=== PATIENT | male | born 1955 | race Caucasian/White ===

== ENCOUNTER → 2016-11-17 | Outpatient (CLI) | payer BC ==
--- NOTE | 2016-11-17 12:41 | XR ---
EXAMINATION TYPE: XR lumbar spine 2 or 3V DATE OF EXAM: 11/17/2016 10:27 AM CLINICAL HISTORY: pain TECHNIQUE: Three views of the lumbar spine are submitted. COMPARISON: None. FINDINGS: There are 5 lumbar type vertebral bodies identified. The lumbar spine shows satisfactory alignment w ithout evidence of acute fracture or dislocation. Vertebral body heights are within normal limits. Moderate degenerative disc space narrowing at L3-4, L4-5 and L5-S1 . Lower lumbar facet joint arthrop athy. The overlying soft tissue appears unremarkable. IMPRESSION: No acute fracture or dislocation is seen in the lumbar spine. ICD 10 NO FRACTURE, INITIAL EVALUATION
== END | disposition home or self-care (01) ==
LOC: RADXRMAIN 10:12
PROVIDERS: ATTEND Family Medicine
DX: M54.5 Low back pain (principal)
CPT/HCPCS: 72100

== ENCOUNTER → 2016-11-22 | Outpatient (CLI) | payer BC ==
--- NOTE | 2016-11-22 18:34 | CT ---
EXAMINATION TYPE: CT lumbar spine wo con DATE OF EXAM: 11/22/2016 5:59 PM COMPARISON: NONE HISTORY: Patient complains of chronic low back pain. CT DLP: 996 mGycm Automated exposure control for dose reduction was used. Unenhanced CT of the lumbar spine was performed. Bone and soft tissue window settings are submitted as well as coronal and sagittal reconstructions. Lumbar vertebra have normal alignment. There is mild narrowing at L4-5 disc space. There is mild ante rior spurring throughout the lumbar spine. The posterior elements are intact. There is no sign of com pression fracture. Abdominal aorta is atheromatous. There is no lumbar paraspinal mass. There is no f ocal bony destructive process. There is no spinal stenosis. I see no lumbar disc herniation. The sacr oiliac joints appear normal. IMPRESSION: Minor degenerative disc change at L4-5. Atherosclerotic vascular disease. Mild hypertrophic spurring. No fracture.
== END | disposition home or self-care (01) ==
LOC: RADCTMAIN 17:36
PROVIDERS: ATTEND Family Medicine
DX: M46.06 Spinal enthesopathy, lumbar region (principal); I70.90 Unspecified atherosclerosis
CPT/HCPCS: 72131

== ENCOUNTER 2018-08-28 01:03 | Inpatient (IN) | payer BC ==
[2018-08-28] MEDS ORDERED: SODIUM CHLORIDE 0.9% 1,000 ML IV STA (01:26)
[2018-08-28 01:27] LABS: ABG Base Excess -14.6 mmol/L; ABG HCO3 18 mmol/L (21-25); ABG PO2 133 mmHg (83-108); ABG TCO2 20 mmol/L (19-24)
[2018-08-28] MEDS ORDERED: AMIODARONE 450 MG in DEXTROSE 5% IN WATER 250 ML IV ONE ×2 (01:32)
[2018-08-28] MEDS ORDERED: DEXTROSE 5% IN WATER 100 ML with AMIODARONE 150 MG IV ONE (01:33)
[2018-08-28 01:42] LABS: ABG PCO2 83 mmHg (35-45); ABG PH <7.00 (7.35-7.45)
[2018-08-28] MEDS ORDERED: ASPIRIN 300 MG SUPP RECTAL STA (01:46)
[2018-08-28] MEDS ORDERED: HEPARIN SODIUM,PORCINE 5,000 UNIT/ML 1 ML VIAL IV ONE (01:46)
[2018-08-28] MEDS ORDERED: MIDAZOLAM 1 MG/ML 5 ML VIAL IV STA (01:50)
[2018-08-28 01:53] LABS: Albumin 3.5 g/dL (3.5-5.0); Calcium 8.3 mg/dL (8.4-10.2); Magnesium 2.7 mg/dL (1.6-2.3); Potassium 4.1 mmol/L (3.5-5.1); Total Bilirubin 0.4 mg/dL (0.2-1.3); Total Protein 6.3 g/dL (6.3-8.2)
--- NOTE | 2018-08-28 01:59 | XR ---
EXAMINATION TYPE: XR chest 1V confirm line [facility] DATE OF EXAM: 08/28/2018 COMPARISON: 07/27/2018 HISTORY: Cardiac arrest TECHNIQUE: Single frontal view of the chest is obtained. FINDINGS: Endotracheal tube is 3 cm from the leo. Nasogastric tube appears below the diaphragm an d in the stomach. There is patchy pulmonary airspace edema. There is some coalescent infiltrate right lower lobe medially. Trachea is midline. There is no pleural effusion. IMPRESSION: There is no pulmonary edema compared to last exam. Consider heart failure or RDS. Endotr acheal tube in good position. I do not see an inferior vena cava catheter.
[2018-08-28 02:07] LABS: Creatine Kinase MB 4.8 ng/mL (0.0-2.4)
--- NOTE | 2018-08-28 02:10 | ED ---
General Adult HPI - General Chief complaint: Cardiac Arrest/CPR Stated complaint: cardiac arrest Time Seen by Provider: 08/28/18 01:19 Source: patient, EMS, RN notes reviewed, old records reviewed Mode of arrival: EMS Limitations: altered mental status - History of Present Illness Initial comments: 63-year-old male no known past medical history presents as cardiac arrest. Initial call according to EMS was chest pain, patient was found unresponsive, bradycardic and hypotensive. He became pulseless, was intubated by EMS and resuscitation BY acls protocol. Patient received 4 doses of epinephrine while in route. He was never in a shockable rhythm. CPR was continued with the Angel resuscitation machine. He arrived at this institution at approximately 1 AM. He was pulseless and CPR was continued. ET tube was replaced secondary to uncertain to the of placement. - Related Data Home Medications Medication Instructions Recorded Confirmed Atorvastatin [Lipitor] 40 mg PO HS 07/27/18 07/27/18 Cetirizine HCl [Zyrtec] 10 mg PO DAILY 07/27/18 07/27/18 Cholecalciferol [Vitamin D3] 1,000 unit PO DAILY 07/27/18 07/27/18 Gabapentin 600 mg PO TID 07/27/18 07/27/18 HYDROcodone/APAP 10-325MG [[place] 1 tab PO TID PRN 07/27/18 07/27/18 10-325] Lisinopril [Zestril] 10 mg PO DAILY 07/27/18 07/27/18 Meclizine [Antivert] 12.5 mg PO HS PRN 07/27/18 07/27/18 Metoprolol Tartrate [Lopressor] 25 mg PO BID 07/27/18 07/27/18 Modafinil [Provigil] 200 mg PO Q12H PRN 07/27/18 07/27/18 Multivitamins, Thera [Multivitamin 1 tab PO DAILY 07/27/18 07/27/18 (formulary)] Previous Rx's Medication Instructions Recorded Ciprofloxacin HCl [Cipro] 500 mg PO Q12HR #7 tablet 07/30/18 methylPREDNISolone Dose Pack 4 mg PO DIRECTED #21 package 07/30/18 [Medrol Dose Pack] Allergies Allergy/AdvReac Type Severity Reaction Status Date / Time Penicillins Allergy Rash/Hives Verified 07/27/18 16:14 Review of Systems ROS Statement: Those systems with pertinent positive or pertinent negative responses have been documented in the HPI. ROS Other: All systems not noted in ROS Statement are negative. Past Medical History Past Medical History: Coronary Artery Disease (CAD) History of Any Multi-Drug Resistant Organisms: None Reported Past Surgical History: Cardiac Valve Replacement Past Anesthesia/Blood Transfusion Reactions: No Reported Reaction Past Psychological History: No Psychological Hx Reported Smoking Status: Former smoker Past Alcohol Use History: None Reported Past Drug Use History: None Reported General Exam - General Exam Comments Initial Comments: 63-year-old male has cardiac arrest. Patient's pupils are 2 mm, nonreactive. He is intubated. Breath sounds with BVM. No spontaneous heart sounds. No peripheral pulses, no central pulses. Abdomen is distended. Patient has peripheral cyanosis. Limitations: altered mental status Course Vital Signs 08/28/18 08/28/18 08/28/18 01:05 01:09 01:16 Pulse Rate 0 L 106 H 113 H Respiratory 0 L 16 16 Rate Blood Pressure 146/88 171/81 O2 Sat by Pulse 0 L 95 97 Oximetry EKG Findings - EKG Comments: EKG Findings:: EKG obtained at 0 1:15, sinus rhythm with sinus arrhythmia, PVCs , wide-complex with QRS duration 136, KS interval 168, ventricular rate 93, T- wave inversion and ST segment depression in the lateral precordium and inferior leads. Repeat EKG obtained at 0123, rate of 121, KS interval 236, QS duration 126, this is wide-complex with ST segment changes, there is some sinus beats. Procedures - Central Line Placement Right Femoral Consent Obtained: emergent situation Time Out Performed: Yes Patient Placed on Monitor/Pulse Ox: Yes Central Line Prep: Chlorhexidine scrub Ultrasound Used for Placement: No Central Line Lumen Inserted: triple Bloods Obtained for Lab: Yes Central Line Position: good blood return, all ports aspirated, flushed, capped, sutured in place with nylon Dressing Applied: Tegaderm Patient Tolerated Procedure: well Additional Comments: This was an urgent line, full sterile technique was not used. This was a resuscitative line. Medical Decision Making - Medical Decision Making 63-year-old male with chest pain presenting as cardiopulmonary arrest. Patient does have return of spontaneous circulation with epinephrine in the emergency department. He has a wide-complex rhythm treated with amiodarone. No definitive ST segment elevation, this was not a V. fib arrest. This was PEA arrest. However given the fact that he was presenting with chest pain initially , I discussed case with cardiology immediately and it was decided that the patient will be taken to the [facility] for urgent heart catheterization. Please see code sheet for full list of resuscitative medications given. He was given sodium bicarb and epinephrine. He was started on norepinephrine infusion , started on amiodarone, given heparin, rectal aspirin. Laboratory studies pending. Chest x-ray shows pulmonary edema, may be contusion from CPR versus cardiogenic pulmonary edema. - Lab Data Result diagrams: 08/28/18 01:24 Lab Results 08/28/18 08/28/18 08/28/18 Range/Units 01:19 01:24 01:24 Sample Site rbrac ABG pH <7.00 L* (7.35-7.45) ABG pCO2 83 H* (35-45) mmHg ABG pO2 133 H (83-108) mmHg ABG HCO3 18 L (21-25) mmol/L ABG Total CO2 20 (19-24) mmol/L ABG O2 Saturation 96.0 (94-97) % ABG Base Excess -14.6 mmol/L Atilio Test Yes FiO2 100 % Sodium 139 (137-145) mmol/L Potassium 4.1 (3.5-5.1) mmol/L Chloride 103 (98-107) mmol/L Carbon Dioxide 19 L (22-30) mmol/L Anion Gap 17 mmol/L BUN 13 (9-20) mg/dL Creatinine 1.47 H (0.66-1.25) mg/dL Est GFR (CKD-EPI)AfAm 58 (>60 ml/min/1.73 sqM) Est GFR (CKD-EPI)NonAf 50 (>60 ml/min/1.73 sqM) Glucose 365 H (74-99) mg/dL Calcium 8.3 L (8.4-10.2) mg/dL Magnesium 2.7 H (1.6-2.3) mg/dL Total Bilirubin 0.4 (0.2-1.3) mg/dL AST 66 H (17-59) U/L ALT 49 (21-72) U/L Alkaline Phosphatase 53 (38-126) U/L Total Creatine Kinase 156 (55-170) U/L CK-MB (CK-2) 4.8 H (0.0-2.4) ng/mL CK-MB (CK-2) Rel Index 3.1 Troponin I 0.202 H* (0.000-0.034) ng/mL Total Protein 6.3 (6.3-8.2) g/dL Albumin 3.5 (3.5-5.0) g/dL Critical Care Time Critical Care Time: Yes Total Critical Care Time: 45 Disposition Clinical Impression: Cardiac arrest, Signs of return of spontaneous circulation, Respiratory failure Disposition: ADMITTED IP TO THIS [facility] Condition: Serious Is patient prescribed a controlled substance at d/c from ED?: No Referrals: Romeo Street MD [Primary Care Provider] - 1-2 days Decision to Admit Reason: Admit from EC Decision Date: 08/28/18 Decision Time: 02:10
[2018-08-28 02:14] LABS: INR 1.1 (<1.2); Partial Thromboplastin Time 32.6 sec (22.0-30.0); Prothrombin Time 11.9 sec (9.0-12.0)
[2018-08-28] MEDS ORDERED: SODIUM BICARB 8.4% 50 ML VIAL (1 MEQ/ML) IV ONE (02:26)
[2018-08-28 02:27] LABS: Troponin I 0.202 ng/mL (0.000-0.034)
[2018-08-28] MEDS ORDERED: NOREPINEPHRINE 4 MG in SODIUM CHLORIDE 0.9% 250 ML IV ONE (02:28)
[2018-08-28 02:30] LABS: HCT 47.5 % (39.0-53.0); HGB 14.1 gm/dL (13.0-17.5); Hypochromasia Marked; MCH 29.2 pg (25.0-35.0); MCHC 29.6 g/dL (31.0-37.0); Mean Platelet Volume 7.8; Platelet Count 185 k/uL (150-450); RBC 4.81 m/uL (4.30-5.90); RDW 13.7 % (11.5-15.5); WBC 16.5 k/uL (3.8-10.6)
[2018-08-28] MEDS ORDERED: NALOXONE 0.4 MG/ML 1 ML VIAL IV PRN ×2 (02:35→06:26)
--- NOTE | 2018-08-28 02:41 | XR ---
EXAMINATION TYPE: XR KUB DATE OF EXAM: 08/28/2018 COMPARISON: NONE HISTORY: Check line placement TECHNIQUE: Single view FINDINGS: Single supine view of the abdomen was obtained that shows a right-sided femoral catheter ap parently in the femoral vein and the tip is at the level of the mid sacrum. This is probably in the r ight common iliac vein. I see no sign of intestinal obstruction or pneumoperitoneum. There is some ga s-filled loops of small bowel in the midabdomen that could relate to mild ileus. IMPRESSION: Catheter tip is probably in the right common iliac vein. There is probably small bowel il eus.
[2018-08-28 03:06] LABS: MCV 98.7 fL (80.0-100.0)
[2018-08-28] MEDS ORDERED: LIDOCAINE 1% INJ 10MG/ML (20 ML MDV) SQ ONE (03:14)
[2018-08-28] MEDS ORDERED: SODIUM CHLORIDE 0.9% 1,000 ML IV ONE (03:16)
[2018-08-28] MEDS ORDERED: IV FLUID CONTINUATION 600 ML IV ONE (03:16)
[2018-08-28] MEDS ORDERED: IV FLUID CONTINUATION 700 ML IV ONE (03:16)
[2018-08-28] MEDS ORDERED: IOPAMIDOL-370 125ML BTL INJ ONE (03:29)
[2018-08-28] MEDS ORDERED: IOPAMIDOL-370 100ML BTL INJ ONE (03:37)
[2018-08-28] MEDS ORDERED: RX INFO: IV CONTRAST WAS GIVEN 1 EACH MISC MISCELLANE PRN ×2 (03:54→10:47)
[2018-08-28] MEDS ORDERED: SODIUM CHLORIDE 0.9% 1,000 ML IV SCH ×2 (04:00→07:45)
--- NOTE | 2018-08-28 04:10 | P.CRDCN ---
History of Present Illness Consult date: 08/28/18 Chief complaint: Shortness of breath History of present illness: This is a 63-year-old gentleman who was brought to the hospital by ambulance after he sustained cardiopulmonary arrest at home. Currently the patient is intubated. The history was taken from the . The patient does have a past medical history significant for COPD as well as hypertension. Beside that he did have aortic valve replacement, probably TAVR was performed at [facility] several years ago. Currently he does follow with a industrial laborer over there. The patient was in his usual state of health when he was sitting with his watching TV earlier at home when he suddenly developed shortness of breath. Beside that the patient also experienced chest discomfort according to his . The called ambulance where the patient was found unresponsive. He was bradycardic and hypotensive. Subsequently he became also less. At that point the patient was intubated on the scene and CPR was initiated by ambulance. The downtime at that point is unknown. The patient was received 4 doses of epinephrine while he is in route to the hospital. He never had any shockable rhythm. When he arrived the emergency room, he was also pulseless and CPR was initiated. The downtime also was unknown in the emergency room here. Subsequently the pulse was restored. The EKG showed sinus rhythm with wide complex rhythm. Because of that, and because of the chest discomfort before, a heart catheterization was advised. I did perform a heart catheterization on the patient and that revealed only mild nonobstructive coronary artery disease. The patient is going to be admitted to the intensive care unit. I will obtain an echocardiogram was Doppler. Please note that the patient did have an echocardiogram about a month ago and that revealed normal LV function with moderately stenotic bioprosthetic aortic valve. At that point the patient was admitted to the hospital with COPD exacerbation. Beside that PE need to be ruled out as well. I will obtain a d-dimer. The patient is unstable to undergo a computed tomography scan of the chest because currently he is on vasopressors was Levophed. Past Medical History Past Medical History: Coronary Artery Disease (CAD) History of Any Multi-Drug Resistant Organisms: None Reported Past Surgical History: Cardiac Valve Replacement Past Anesthesia/Blood Transfusion Reactions: No Reported Reaction Past Psychological History: No Psychological Hx Reported Smoking Status: Former smoker Past Alcohol Use History: None Reported Past Drug Use History: None Reported Medications and Allergies Home Medications Medication Instructions Recorded Confirmed Type Atorvastatin [Lipitor] 40 mg PO HS 07/27/18 07/27/18 History Cetirizine HCl [Zyrtec] 10 mg PO DAILY 07/27/18 07/27/18 History Cholecalciferol [Vitamin D3] 1,000 unit PO DAILY 07/27/18 07/27/18 History Gabapentin 600 mg PO TID 07/27/18 07/27/18 History HYDROcodone/APAP 10-325MG [[place] 1 tab PO TID PRN 07/27/18 07/27/18 History 10-325] Lisinopril [Zestril] 10 mg PO DAILY 07/27/18 07/27/18 History Meclizine [Antivert] 12.5 mg PO HS PRN 07/27/18 07/27/18 History Metoprolol Tartrate [Lopressor] 25 mg PO BID 07/27/18 07/27/18 History Modafinil [Provigil] 200 mg PO Q12H PRN 07/27/18 07/27/18 History Multivitamins, Thera [Multivitamin 1 tab PO DAILY 07/27/18 07/27/18 History (formulary)] Ciprofloxacin HCl [Cipro] 500 mg PO Q12HR #7 tablet 07/30/18 Rx methylPREDNISolone Dose Pack 4 mg PO DIRECTED #21 package 07/30/18 Rx [Medrol Dose Pack] Allergies Allergy/AdvReac Type Severity Reaction Status Date / Time Penicillins Allergy Rash/Hives Verified 07/27/18 16:14 Physical Exam Vitals: Vital Signs Pulse Pulse Resp BP BP Pulse Ox 08/28/18 02:45 80 19 78/66 100 08/28/18 02:30 71 20 108/63 99 08/28/18 02:15 90 19 97/62 08/28/18 02:00 92 18 73/36 89 L 08/28/18 01:45 86 18 69/56 97 08/28/18 01:30 113 H 23 108/56 97 08/28/18 01:16 113 H 16 171/81 97 08/28/18 01:15 115 H 22 109/71 94 L 08/28/18 01:09 106 H 16 146/88 95 08/28/18 01:05 0 L 0 L 0 L Intake and Output 08/27/18 08/27/18 08/28/18 14:59 22:59 06:59 Intake Total 226.562 Balance 226.562 Intake: IV 225 Intake, IV Titration 1.562 Amount Norepinephrine 4 mg In 1.562 Sodium Chloride 0.9% 250 ml @ Titrate IV .Q0M ONE Rx#:[id number] Other: Weight 99.79 kg - Constitutional General appearance: mild distress - Respiratory Respiratory: bilateral: rales - Cardiovascular Rhythm: irregularly irregular Heart sounds: normal: S1, S2 Abnormal Heart Sounds: systolic murmur Results 08/28/18 01:24 08/28/18 01:24 Cardiac Enzymes 08/28/18 08/28/18 Range/Units 01:24 01:24 AST 66 H (17-59) U/L CK-MB (CK-2) 4.8 H (0.0-2.4) ng/mL Troponin I 0.202 H* (0.000-0.034) ng/mL Coagulation 08/28/18 Range/Units 01:24 PT 11.9 (9.0-12.0) sec APTT 32.6 H (22.0-30.0) sec CBC 08/28/18 Range/Units 01:24 WBC 16.5 H (3.8-10.6) k/uL RBC 4.81 (4.30-5.90) m/uL Hgb 14.1 (13.0-17.5) gm/dL Hct 47.5 (39.0-53.0) % Plt Count 185 (150-450) k/uL Comprehensive Metabolic Panel 08/28/18 Range/Units 01:24 Sodium 139 (137-145) mmol/L Potassium 4.1 (3.5-5.1) mmol/L Chloride 103 (98-107) mmol/L Carbon Dioxide 19 L (22-30) mmol/L BUN 13 (9-20) mg/dL Creatinine 1.47 H (0.66-1.25) mg/dL Glucose 365 H (74-99) mg/dL Calcium 8.3 L (8.4-10.2) mg/dL AST 66 H (17-59) U/L ALT 49 (21-72) U/L Alkaline Phosphatase 53 (38-126) U/L Total Protein 6.3 (6.3-8.2) g/dL Albumin 3.5 (3.5-5.0) g/dL Current Medications Generic Name Dose Route Start Last Admin Trade Name Arminq PRN Reason Stop Dose Admin Amiodarone HCl 450 mg/ 259 mls @ 34.53 mls/hr 08/28/18 01:32 08/28/18 02:20 Dextrose/Water IV 08/28/18 09:02 1 mg/min .Q7H31M ONE 34.53 mls/hr Administration Protocol 1 MG/MIN Sodium Chloride 1,000 mls @ 75 mls/hr 08/28/18 04:00 Saline 0.9% IV 08/28/18 09:01 .[id number] DAVINA Miscellaneous Information 1 each 08/28/18 03:54 Rx Info: Iv Contrast Was Given MISCELLANE 08/30/18 03:54 DAILY PRN Per Protocol Naloxone HCl 0.2 mg 08/28/18 02:35 Narcan IV Q2M PRN Opioid Reversal Intake and Output 08/27/18 08/27/18 08/28/18 14:59 22:59 06:59 Intake Total 226.562 Balance 226.562 Intake: IV 225 Intake, IV Titration 1.562 Amount Norepinephrine 4 mg In 1.562 Sodium Chloride 0.9% 250 ml @ Titrate IV .Q0M ONE Rx#:[id number] Other: Weight 99.79 kg Patient Weight 08/28/18 06:59 Weight 99.79 kg 08/28/18 01:24 08/28/18 01:24 Assessment and Plan Assessment: Assessment #1 cardiopulmonary arrest. The exact etiology is unknown. Cath was normal. PE to be ruled out. #2 aortic valve disease and status post aortic valve replacement #3 known chronic obstructive pulmonary disease #4 hypertension Plan #1 the patient underwent a heart catheterization and that revealed mild nonobstructive coronary artery disease #2 he is going to be admitted to the intensive care unit #3 PE to be ruled out. I will obtain a d-dimer #4 an echocardiogram was Doppler as well #5 probably he needs to be diuresed in view of the elevated left ventricular end -diastolic pressure as well as chest x-ray finding #6 follow-up with the patient. Thank you for allowing us participate in his care
[2018-08-28 04:14] LABS: Eosinophils # (M) 0.17 k/uL (0-0.7); Nucleated Red Blood Cells 0 /100 WBC (0-0); Total Cells Counted 200
[2018-08-28 04:15] LABS: Anisocytosis (M) Present; Large Platelets Present; Polychromasia Present
[2018-08-28] MEDS ORDERED: FUROSEMIDE 10 MG/ML 4 ML VIAL ONE (04:20)
[2018-08-28 04:33] LABS: Glucose,Whole Blood 258 mg/dL (75-99)
--- NOTE | 2018-08-28 05:13 | CC ---
CARDIAC CATHETERIZATION REPORT DATE OF SERVICE: August 28, 2018 PERFORMING PHYSICIAN: Vinayak Samuels M.D., gas golf cart repairer. PROCEDURE PERFORMED: 1. Selective right and left coronary angiogram. 2. Left heart catheterization. INDICATION: This is a 63-year-old gentleman with past medical history significant for aortic valve disease and status post aortic valve replacement using bioprosthetic valve as well as history of hypertension and chronic obstructive pulmonary disease, who was brought to the emergency room by ambulance after he had a cardiopulmonary arrest at home. His EKG showed wide-complex rhythm. He was experiencing chest discomfort before the cardiac cardiopulmonary arrest. Because of that, heart catheterization was advised. APPROACH: Left common femoral artery. COMPLICATION: None. LEVEL OF SEDATION: Moderate with sedation length of 35 minutes. PROCEDURE DESCRIPTION: After obtaining an informed consent, the patient was brought to cardiac labor and delivery registered nurse. The left common femoral artery was cannulated using micropuncture technique, the micropuncture wire passed easily then I placed a 6-Grenadian sheath in the left common femoral artery. After that I did selective right and left coronary angiogram. Selective left coronary angiogram was performed using JL4 catheter. Selective right coronary angiogram was attempted using JR4 and then [place] right and then [place] right posterior, but finally I was able to get it using an AL1 catheter. I did left heart catheterization using the JR4 catheter which flipped into the LV then I did pullback across aortic valve. The procedure was completed without any complication. SELECTIVE CORONARY ANGIOGRAM: 1. The left main is a short left main but angiographically normal. It bifurcates into left circumflex and left anterior descending artery. 2. The left circumflex is a large caliber vessel. It is a nondominant vessel. The proximal circumflex appeared to be angiographically normal and gives rise into a large OM branch which appeared to be angiographically normal. The mid circumflex is normal and gives rise into a second OM branch which has mild disease only. The circumflex distally appeared to be angiographically normal. 3. The ramus intermedius is a large caliber vessel and appeared to be angiographically normal. 4. The LAD: The proximal LAD is angiographically normal. It gives rise into the first diagonal branch which is a medium caliber vessel, seems to be angiographically normal. The mid LAD and distal LAD appeared to be angiographically normal as well. 5. The right coronary artery is a medium caliber vessel and it appears to be angiographically normal. Distally bifurcates into PDA and PLV branches. HEMODYNAMICS: The left ventricular end-diastolic pressure was 40 mmHg with only mild gradient across the aortic valve. CONCLUSION: 1. Mild nonobstructive coronary artery disease. 2. Severely elevated left ventricular end-diastolic pressure. POSTPROCEDURE MANAGEMENT: 1. D-dimer to rule out a pulmonary embolization. 2. ICU admission. 3. Standard groin care. 4. Follow up with the patient. MMODL / IJN: [id number] /
[2018-08-28 06:31] LABS: ABG Base Excess -10.2 mmol/L; ABG HCO3 18 mmol/L (21-25); ABG Oxygen Saturation 99.8 % (94-97); ABG PCO2 48 mmHg (35-45); ABG PO2 149 mmHg (83-108); ABG TCO2 20 mmol/L (19-24)
[2018-08-28 06:36] LABS: ABG PH 7.19 (7.35-7.45)
[2018-08-28 07:21] LABS: Calcium 7.3 mg/dL (8.4-10.2); Magnesium 2.1 mg/dL (1.6-2.3); Phosphorus 7.9 mg/dL (2.5-4.5)
[2018-08-28 07:38] LABS: Lymphocytes # (M) 7.92 k/uL (1.0-4.8); Neutrophils % (M) 39 %
[2018-08-28 07:39] LABS: Band Neutrophils % 2 %; Basophils # (M) 0.17 k/uL (0-0.2); Metamyelocytes # (M) 0.66 k/uL (0); Metamyelocytes % 4 %; Monocytes # (M) 0.83 k/uL (0-1.0); Myelocytes % 3 %
[2018-08-28] MEDS: DOPamine DRIP 800 MG in DEXTROSE/WATER 1 500ML.BAG IV SCH (07:40)
[2018-08-28] MEDS ORDERED: SODIUM BICARB 8.4% 50 ML SYR (1 MEQ/ML) IV STA (07:40)
[2018-08-28] MEDS: PROPOFOL 1,000 MG in EMPTY BAG 1 BAG IV SCH ×3 (07:45→20:37)
[2018-08-28] MEDS ORDERED: INSULIN REGULAR 100 UNIT/ML VIAL IV STA (07:55)
[2018-08-28] MEDS ORDERED: DEXTROSE 50%-WATER 50 ML SYRINGE IVP STA (07:56)
[2018-08-28 07:57] LABS: HCT 46.6 % (39.0-53.0); HGB 14.1 gm/dL (13.0-17.5); Hypochromasia Marked; MCH 29.6 pg (25.0-35.0); MCHC 30.3 g/dL (31.0-37.0); MCV 97.9 fL (80.0-100.0); Mean Platelet Volume 7.9; Platelet Count 238 k/uL (150-450); RBC 4.76 m/uL (4.30-5.90); RDW 13.9 % (11.5-15.5); WBC 19.2 k/uL (3.8-10.6)
[2018-08-28] MEDS ORDERED: SODIUM POLYSTYRENE SULFONATE 15 GM/60 ML BOTTLE PO STA ×2 (07:57→13:50)
[2018-08-28] MEDS: ATROPINE SULFATE 0.1 MG/ML 10ML SYRINGE ONE ×2 (08:00→08:35)
[2018-08-28] MEDS ORDERED: HEPARIN SODIUM,PORCINE 5,000 UNIT/ML 1 ML VIAL IV PRN (08:00)
[2018-08-28] MEDS: SODIUM BICARB 8.4% 50 ML SYR (1 MEQ/ML) IV ONE (08:29)
[2018-08-28] MEDS: HEPARIN SOD,PORK IN 0.45% NACL 25,000 UNIT in 0.45% NACL 1 250ML.BAG IV SCH ×2 (08:46→23:08)
[2018-08-28 08:50] LABS: Band Neutrophils % 3 %; Lymphocytes # (M) 1.54 k/uL (1.0-4.8); Metamyelocytes # (M) 0.19 k/uL (0); Metamyelocytes % 1 %; Monocytes # (M) 1.15 k/uL (0-1.0); Myelocytes # (M) 0.19 k/uL (0); Myelocytes % 1 %; Neutrophils % (M) 83 %; Nucleated Red Blood Cells 0 /100 WBC (0-0); Total Cells Counted 200
[2018-08-28] MEDS: PANTOPRAZOLE 40 MG/10 ML VIAL IV SCH (09:10)
--- NOTE | 2018-08-28 09:23 | XR ---
EXAMINATION TYPE: XR chest 1V DATE OF EXAM: 08/28/2018 COMPARISON: 08/28/2018 INDICATION: On ventilator difficulty breathing TECHNIQUE: Single frontal view of the chest is obtained. FINDINGS: The heart size is normal. The pulmonary vasculature is prominent. There is diffuse increased lung markings to the right upper and midlung field and left upper lung fie ld. Correlate for pulmonary edema. Right lower lobe may be improving. Endotracheal tube is present with the tip above the leo. Nasogastric tube transverses the thorax. EKG leads overlie the chest. IMPRESSION: 1. Increased pulmonary vascular markings and diffuse increased opacity through the lungs similar to p rior examination. Correlate for atypical pulmonary edema.
[2018-08-28] MEDS: NOREPINEPHRINE 16 MG in SODIUM CHLORIDE 0.9% 250 ML IV SCH ×2 (10:30→20:36)
--- NOTE | 2018-08-28 11:29 | ECHOF ---
Referral Reason:cardio-pulmonary arrest MEASUREMENTS -------- HEIGHT: 170.2 cm WEIGHT: 99.8 kg BP: 86/52 IVSd: 1.3 cm (0.6 - 1.1) LVIDd: 5.2 cm (3.9 - 5.3) LVPWd: 1.4 cm (0.6 - 1.1) IVSs: 1.6 cm LVIDs: 3.0 cm LVPWs: 1.8 cm Ao Diam: 3.1 cm (2.0 - 3.7) AV maxP.55 mmHg AV meanP.53 mmHg FINDINGS -------- Undetermined rhythm. This was a techncally difficult study with suboptimal views, , Lumason utilized for enhancement of im ages. The left ventricular size is normal. There is mild concentric left ventricular hypertrophy. Overa ll left ventricular systolic function is normal with, an EF between 55 - 60 %. The right ventricle is normal in size. The left atrium is mildly dilated. The right atrial size is normal. Peak/mean gradient across the Aortic Valve is 71.55mmHg / 38.53mmHg. The vegetation is pedunculated and mobile. There is mild regurgitation of the bioprosthetic aortic valve. There is moderate yudith nosis of the bioprosthetic aortic valve. Moderate mitral annular calcification present. [id number] mitral regurgitation is present. Mild tricuspid regurgitation present. The pulmonic valve was not well visualized. There is no pericardial effusion. CONCLUSIONS -------- 1. This was a techncally difficult study with suboptimal views, , Lumason utilized for enhancement of images. 2. The left ventricular size is normal. 3. There is mild concentric left ventricular hypertrophy. 4. Overall left ventricular systolic function is normal with, an EF between 55 - 60 %. 5. The left atrium is mildly dilated. 6. The right atrial size is normal. 7. Peak/mean gradient across the Aortic Valve is 71.55mmHg / 38.53mmHg. 8. The vegetation is pedunculated and mobile. 9. There is mild regurgitation of the bioprosthetic aortic valve. 10. There is moderate stenosis of the bioprosthetic aortic valve. 11. Moderate mitral annular calcification present. 12. [id number] mitral regurgitation is present. 13. Mild tricuspid regurgitation present. 14. The pulmonic valve was not well visualized. 15. There is no pericardial effusion. PASSENGER LOCOMOTIVE ENGINEER: Amy Worthington RDCS
[2018-08-28] MEDS ORDERED: VANCOMYCIN IV PER PHARMACY 1 EACH MISC MISCELLANE PRN (11:54)
[2018-08-28] MEDS: CHLORHEXIDINE GLUCONATE 15 ML CUP MUCOUS MEM SCH ×2 (12:37→21:47)
[2018-08-28] MEDS: CLINDAMYCIN 600 MG in DEXTROSE 5% IN WATER 50 ML IVPB SCH ×4 (12:40→21:45)
[2018-08-28] MEDS: VANCOMYCIN 1,750 MG in SODIUM CHLORIDE 0.9% 500 ML 500 ML IVPB SCH (12:48)
[2018-08-28 13:21] LABS: Glucose,Whole Blood 138 mg/dL (75-99)
[2018-08-28 14:19] LABS: Appearance,Urine Cloudy (Clear); Bacteria,Urine Rare /hpf; Bilirubin,Urine Negative (Negative); Blood,Urine Large (Negative); Color,Urine Yellow; Glucose,Urine (UA) Negative (Negative); Granular Casts,Urine 13 /lpf (0); Ketones,Urine Negative (Negative); Leukocyte Esterase,Urine Small (Negative); Mucus,Urine Rare /hpf; Nitrite,Urine Negative (Negative); PH, Urine 5.5 (5.0-8.0); Protein,Urine 2+ (Negative); RBC,Urine 58 /hpf (0-5); Specific Gravity,Urine 1.043 (1.001-1.035); Urobilinogen,Urine <2.0 mg/dL (<2.0)
--- NOTE | 2018-08-28 14:30 | CT ---
EXAMINATION TYPE: CT brain wo con DATE OF EXAM: 08/28/2018 COMPARISON: None HISTORY: Rule out stroke. CT DLP: 1164.4 mGycm Automated exposure control for dose reduction was used. FINDINGS: Contrast is seen within the internal carotid arteries and middle cerebral arteries as well as within the posterior cerebral arteries and anterior cerebral arteries likely retained from the patient's int ravascular contrast from cardiac catheterization earlier the same day. Contrast is also noted through out the dural venous system. Evans-white junction interface is maintained. Patient is noted to be intubated. There is rightward phylicia al septal deviation. Paranasal sinuses display mild mucosal thickening within the ethmoid and sphenoi d sinuses. Remaining paranasal sinuses and mastoid air cells are well aerated. Incidental note is mad e of atherosclerosis of the intracranial vasculature. Orbits are symmetric. IMPRESSION: 1. NO EVIDENCE OF MIDLINE SHIFT OR EVANS-WHITE MATTER INTERFACE OBSCURATION TO SUGGEST ACUTE OR SUBACU TE INFARCT. 2. RETAINED CONTRAST WITHIN THE INTRACRANIAL VASCULATURE LIKELY FROM THE RECENT CORONARY ARTERY JASKARAN TERIZATION THEREFORE LIMITING EVALUATION FOR INTRACRANIAL HEMORRHAGE. 3. MILD PARANASAL SINUS DISEASE.
--- NOTE | 2018-08-28 14:49 | CT ---
EXAMINATION TYPE: CT angio chest DATE OF EXAM: 08/28/2018 COMPARISON: NONE HISTORY: Rule out PE. Known aortic valvular vegetations. CT DLP: 892.7 mGycm. Automated Exposure Control for Dose Reduction was Utilized. CONTRAST: CTA scan of the thorax is performed with IV Contrast, patient injected with 80 mL of Isovue 370, pulm onary embolism protocol. MIP Images are created on CT scanner and reviewed. FINDINGS: Exam is slightly suboptimal due to patient motion. LUNGS: There are moderate bilateral pleural effusions and multifocal airspace disease. Bibasilar airs pace disease appears a segmental atelectasis however midlung and upper lobe airspace disease has area s of decreased density with air bronchograms suggesting a component of developing pneumonia. Scattere d groundglass opacities are also seen in the lung apices such as on the left on image 35 and right on image 31 with more confluent geographic groundglass opacities at the lung bases and nodular right mi ddle lobe density and image 97 measuring 1 cm. Interstitial pulmonary edema is also noted. The trache obronchial tree is patent. The patient is noted to be intubated and enteric tube is also in place. MEDIASTINUM: There is ascending thoracic aortic dilatation measuring up to 4.7 cm. Aortic valvular ca lcifications are noted. Exam is suboptimal for evaluation of aortic dissection given the phase of con trast, however no gross evidence of dissection is seen. Mild coronary artery calcifications are prese nt. Heart is upper limits of normal in size. Main pulmonary artery is mildly enlarged measuring 3.2 c m suggestive of underlying pulmonary arterial hypertension. Left-sided cardiac device is present. There is reflux of contrast into the inferior vena cava and throughout the hepatic veins indicative o f a degree of right heart failure. Vicarious excretion of contrast within the gallbladder is noted. T here is satisfactory enhancement of the pulmonary artery and its branches, there is no CT evidence fo r pulmonary embolism. Mediastinal adenopathy is present with a right paratracheal lymph node measurin g 1.9 cm in short axis.. Heart is mildly enlarged. OTHER: Moderate multilevel degenerative changes of the spine are noted. IMPRESSION: 1. No evidence of pulmonary embolus. Main pulmonary artery is mildly enlarged suggesting underlying p ulmonary arterial hypertension. 2. Multifocal segmental and subsegmental atelectasis involving the upper lobes and lower lobes some o f which is compressive due to moderate bilateral pleural effusions. Additionally areas of low density within the upper lobe consolidations suggest the possibility of a developing pneumonia versus low de nsity from pulmonary edema. 3. Compilation of findings suggesting decompensating congestive heart failure with multifocal conflue nt pulmonary edema, interstitial edema and pulmonary vascular congestion in combination with reflux o f contrast into the and inferior vena cava and hepatic veins. 4. Ascending thoracic aortic aneurysm measuring 4.7 cm.
[2018-08-28] MEDS: SODIUM CHLORIDE 0.9% 1,000 ML IV SCH (15:30)
[2018-08-28] MEDS: FUROSEMIDE 10 MG/ML 4 ML VIAL IV SCH ×2 (16:53→21:47)
[2018-08-28 19:36] LABS: Hemoglobin A1C 6.3 % (4.0-6.0)
--- NOTE | 2018-08-28 19:56 | PN ---
PROGRESS NOTE Mr. Mayer is a gentleman who was admitted early this morning with what seems to be a cardiac arrest. It appears that he was at home and when he complained of difficulty breathing and then passed out. The patient was found unresponsive, bradycardic and hypotensive, pulseless, intubated by EMS on-site. The exact down time is unknown. It is at least more than 15 minutes probably. He received 4 doses of epinephrine en route. He then had a CPR that was continued with arrival in the ER where he was again pulseless. ET tube was replaced secondary to uncertainty of the type of placement. Subsequently, he apparently had a wide QRS tachycardia and Dr. Samuels was called and he performed a coronary angiography which revealed no significant coronary disease. The patient was then sent to the ICU. He was placed on amiodarone drip and developed significant bradycardia, placed on external pacer. After I came into evaluate the patient, I reduced the dose of external pacer, gave him some atropine and he was in a sinus rhythm at 60 beats per minute with a blood pressure in the 90s. I switched over to a combination of Levophed and dopamine and with this his heart rate came up. However patient was de-intubated, deeply sedated. 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 This was not seen as clearly on the previous study from July. This gentleman sees a revenue accountant in the [facility]. He has history of aortic valve replacement performed several years ago. He also has history of hypertension, hyperlipidemia as well. He has no obstructive CAD based on a cardiac cath. My concern after seeing the patient was that either he had a pulmonary embolism because of his sudden onset of shortness of breath and then became pulseless and unresponsive. The other question was possibility of acute CVA with a embolic phenomena from the vegetation on the aortic valve. With these two concerns in mind, even though his creatinine was elevated, I requested radiology to perform a CT scan of the brain as well as a CT angiography. I explained the rationale to the patient's family members, his and 3 children. I suggested to them that there is a possibility of endocarditis with a vegetation in place, but I am not sure as to the contribution of this vegetation to his rather sudden presentation with shortness of breath and respiratory and cardiac arrest. However, there were lot of unanswered questions. I will perform blood cultures as well as CT angiography for pulmonary embolism and aortic pathology and also for any intracranial bleed or midline shift. Following this, I will also seek input from Neurology. I am awaiting input from Dr. Zavala, customer engineering specialist and Dr. Mckeon from Neurology. From a cardiac standpoint I am not recommending any aggressive intervention other than supporting his blood pressure and heart rate. Prognosis remains quite poor. The most important question is his down time, which I think was quite long. However, it was at least more than 15 minutes that we know off. His blood pressure when I saw him was about 98/60, pulse rate was in the 90 range. He was unresponsive. S1-S2 heard normally but distantly. Lungs reveal bilateral air entry with some rales. These were all ventilator assisted breath sounds. Patient is on heparin protocol. Prognosis remains quite poor. There is also possibility that he may have aspirated as well. PAST MEDICAL HISTORY: Remarkable for hypertension, hyperlipidemia, status post aortic valve replacement. It is quite possible he has history of some sleep apnea syndrome as well. The patient is a former smoker. I explained to the patient and family that the prognosis is poor overall, but we will at least make these efforts to find out of pulmonary embolism or any acute cerebrovascular event is causative for his presentation. Thank you very much for the consult. KANG / VIDHI: [id number] /
[2018-08-28 21:33] LABS: Glucose,Whole Blood 160 mg/dL (75-99)
--- NOTE | 2018-08-28 22:41 | CONS ---
CONSULTATION DATE OF CONSULTATION: 08/28/2018. CHIEF COMPLAINT: Possible stroke. HISTORY OF PRESENT ILLNESS: Mr. Mayer is a 63-year-old male who is being evaluated by the Neurology Service per the request of Dr. Romeo Street for a possible stroke. The patient was brought into [facility] emergency room after he suffered a witnessed cardiac arrest after complaining of chest pain. EMS was called, and according to nursing staff, down time was greater than 10 minutes. When EMS arrived, the patient was unresponsive, hypotensive, and bradycardic. He later became pulseless and was intubated and resuscitated. A stat CT scan of the brain was done, which showed no acute intracranial abnormalities. A CT angiogram of the chest was done, which showed no evidence of any pulmonary embolism. His D-dimer was elevated at 29.47. His comprehensive metabolic profile showed hyperkalemia at 7.0 and elevated creatinine at 1.93. Cardiology has been consulted. The patient was never noticed to have any lateralizing weakness and it is unclear why a stroke was suspected. At the time of my evaluation, the patient is intubated and sedated. When sedation is held, the patient's vital signs become unstable. PAST MEDICAL HISTORY: Coronary artery disease, dyslipidemia, hypertension, vertigo, history of cardiac valve replacement. SOCIAL HISTORY: The patient is a former smoker. There is no history of any alcohol or drug use. FAMILY HISTORY: Noncontributory. HOME MEDICATIONS: Reviewed in the chart. ALLERGIES: PENICILLIN. REVIEW OF SYSTEMS: Unable to obtain as patient is intubated, sedated and unresponsive. PHYSICAL EXAM: Vital signs show a temperature of 100.3, pulse 104, respirations 34, blood pressure 105/52. GENERAL APPEARANCE: The patient is an obese male who is intubated and sedated. HEENT: Normocephalic, atraumatic. No obvious facial asymmetry is seen. Endotracheal tube is intact. NECK: Supple. No masses felt. CARDIOVASCULAR: Regular rate and rhythm. ABDOMEN: Obese. EXTREMITIES: Edema with no clubbing seen. NEUROLOGIC: The patient is unresponsive to verbal or painful stimuli. Brainstem reflex testing showed absent corneal reflex, pupillary reflex, gag reflex, and oculocephalic reflex. He does not respond to any painful stimuli in all 4 extremities. Plantar reflex showed silent toes bilaterally. No ankle clonus is seen. No seizure-like activity is noticed. IMPRESSION: 1. Anoxic brain injury. 2. Cardiac arrest. RECOMMENDATION: A neurological consultation was ordered for a possible stroke, but the patient's history is more consistent with cardiac arrest with secondary anoxic brain injury. His initial CT scan of the brain showed no acute intracranial abnormalities. I will order a repeat CT scan of the brain to be done in the morning. An EEG will be ordered. His neurological examination is significantly abnormal as mentioned above, consistent with anoxic brain injury. His down time was greater than 10 minutes. Continue supportive care. Cardiology is following the patient. I will continue to follow with you. Prognosis is poor at this time. Thank you, Dr. Street, for allowing me to participate in the care of your patient. If you have any questions, please feel free to contact me. KANG / TREVN: [id number] /
[2018-08-28 23:43] LABS: Glucose,Whole Blood 147 mg/dL (75-99)
--- NOTE | 2018-08-28 23:47 | HP ---
HISTORY AND PHYSICAL CHIEF COMPLAINT: White male who was admitted with intubator for acute respiratory collapse at home. Cardiovascular collapse. He was asystole. He received epinephrine while en route. He was intubated and resuscitated and placed on the ventilator. The best I can tell, he has had flash pulmonary edema. His heart catheterization showed minimal to moderate blockage. CT of the chest was negative for pulmonary embolism. HOME MEDICINES: Lipitor, Zyrtec, vitamin B12, vitamin D3, Timber, Zestril, Antivert, metoprolol, Provigil, multivitamins. ALLERGIES: PENICILLIN. 14-point review of system he is on the table, he is on the vent. PAST MEDICAL HISTORY: Recent COPD exacerbation. Coronary artery disease. Cardiac valve replacement. Former smoker. PHYSICAL EXAMINATION: Pulse is 90s to 112, respiratory rate 12 to 16, blood pressure 140s to 170s over 60s to 80s, O2 is 95 to 97 percent. Cardiac catheterization as mentioned above. CT scan of the chest as mentioned above. CARDIOVASCULAR: S1, S2. Some tachycardia. Lungs show scattered rales. Hematologic: 2+ pedal edema. Vascular: Normal dorsalis pedis, posterior place. Abdomen is soft, nontender. LABORATORY DATA: BUN is 12, creatinine 1.17. ABGs reviewed. ASSESSMENT: 1. Acute flash pulmonary edema. 2. Acute respiratory failure. 3. Acute syncope. 4. Cardiorenal disease, stage III. 5. Chronic obstructive pulmonary disease exacerbation. Continue with updraft treatments, steroids, possibly IV Lasix for CHF. Please see further orders. ICU time 45-60 minutes. MMODL / IJN: [id number] /
[2018-08-29] MEDS ORDERED: ACETAMINOPHEN IV (For NPO) 1,000 MG in EMPTY BAG 1 BAG IVPB PRN
[2018-08-29] MEDS: PROPOFOL 1,000 MG in EMPTY BAG 1 BAG IV SCH ×5 (00:20→12:57)
[2018-08-29] MEDS: SODIUM CHLORIDE 0.9% 1,000 ML IV SCH (00:33)
[2018-08-29] MEDS: INSULIN ASPART 100 UNIT/ML 1 ML 10 ML VIAL SQ SCH ×3 (00:40→12:19)
--- NOTE | 2018-08-29 00:43 | P.CNPUL ---
History of Present Illness Consult date: 08/28/18 Reason for consult: dyspnea, other Chief complaint: Status post cardiac arrest History of present illness: 63-year-old male who has end-stage lung disease secondary severe COPD emphysema , also has a history of sleep disorder breathing and sleep apnea patient is morbidly obese, patient does have a history of bioprosthetic aortic valve which was replaced at [facility] few years ago, patient was recently hospitalized back in July for COPD exacerbation, patient was also evaluated by cardiovascular services at that time an echocardiogram was performed which failed to reveal any vegetation aortic valve area. The patient was in his usual state of health when he was sitting with his watching TV earlier at home when he suddenly developed shortness of breath. Beside that the patient also experienced chest discomfort according to his . The called ambulance where the patient was found unresponsive. He was bradycardic and hypotensive. Subsequently he became unresponsive. At that point the patient was intubated on the scene and CPR was initiated by ambulance. The downtime at that point is unknown. This patient was brought into emergency department earlier this morning by EMS after cardiac arrest patient was bradycardic hypertensive ET tube was changes in the emergency department, patient was given CPR and Route, patient did have epinephrine and Route as well, patient was evaluated by cardiovascular services he underwent emergent cardiac cath and angiogram no significant coronary artery disease was seen however an echocardiogram performed earlier today revealed vegetation at bioprosthetic aortic valve area which is a new finding, care plan discussed with the staff as well as family at length patient is not stable from pulmonary critical care standpoint for transfer to tertiary care center given requirement for vasopressors and high FiO2, patient is being treated with full ventilator support he is on assist control rate of 16 breathing about 20-23 he did spike a fever up to 102 respiratory rate went up with a high fever also he is more tachycardic but he continued to require dopamine 5 mics as well as levo fed 30 mics he is also on propofol 50 mics. Blood cultures have been sent urine and sputum has been sent as well patient has been on Vanco, clindamycin and for gram-negative coverage Levaquin is being started as well. Cardiovascular services suggested to be kept on IV heparin as well patient is nonverbal and noncommunicative at this point but is agitated intermittently, neurological services have evaluated as well, patient was also found to have severe hyperkalemia with potassium of 7D 50 along with insulin was given followed by 2 doses of Kayexalate Review of Systems ROS unobtainable: due to endotracheal tube Past Medical History Past Medical History: Coronary Artery Disease (CAD) History of Any Multi-Drug Resistant Organisms: None Reported Past Surgical History: Cardiac Valve Replacement Additional Past Surgical History / Comment(s): aortic valve [place] in 2007 Past Anesthesia/Blood Transfusion Reactions: No Reported Reaction Past Psychological History: No Psychological Hx Reported Smoking Status: Former smoker Past Alcohol Use History: None Reported Past Drug Use History: None Reported - Past Family History Father Family Medical History: Myocardial Infarction (OR) Mother Family Medical History: Pulmonary Embolus Brother(s) Family Medical History: Cancer, Coronary Artery Disease (CAD) Additional Family Medical History / Comment(s): eldest this summer Medications and Allergies Home Medications Medication Instructions Recorded Confirmed Type Atorvastatin [Lipitor] 40 mg PO DAILY 07/27/18 08/28/18 History Cetirizine HCl [Zyrtec] 10 mg PO HS 07/27/18 08/28/18 History Gabapentin 600 mg PO TID 07/27/18 08/28/18 History HYDROcodone/APAP 10-325MG [[place] 1 tab PO TID PRN 07/27/18 08/28/18 History 10-325] Lisinopril [Zestril] 10 mg PO DAILY 07/27/18 08/28/18 History Metoprolol Tartrate [Lopressor] 25 mg PO BID 07/27/18 08/28/18 History Modafinil [Provigil] 200 mg PO DAILY 07/27/18 08/28/18 History Albuterol Nebulized [Ventolin 2.5 mg INHALATION Q6H PRN 08/28/18 08/28/18 History Nebulized] Allergies Allergy/AdvReac Type Severity Reaction Status Date / Time Penicillins Allergy Rash/Hives Verified 08/28/18 09:28 Physical Exam Vitals: Vital Signs Temp Pulse Pulse Resp BP BP Pulse Ox 08/28/18 23:30 100.7 F H 110 H 28 H 98/48 94 L 08/28/18 23:00 108 H 27 H 99/49 95 08/28/18 22:30 106 H 27 H 97/51 95 08/28/18 22:00 105 H 27 H 107/53 95 08/28/18 21:30 106 H 24 104/63 94 L 08/28/18 21:00 103 H 25 H 103/54 93 L 08/28/18 20:30 103 H 24 102/51 96 08/28/18 20:15 103 H 24 98/53 96 08/28/18 20:00 99.9 F H 104 H 25 H 100/53 95 08/28/18 19:45 103 H 24 102/54 95 08/28/18 19:30 101 H 24 97/47 96 08/28/18 19:15 101 H 25 H 100/53 96 08/28/18 19:00 101 H 25 H 100/53 96 08/28/18 18:45 100 23 98/53 96 08/28/18 18:30 101 H 24 97/52 96 08/28/18 18:15 101 H 24 99/54 96 08/28/18 18:00 101 H 23 96/53 95 08/28/18 17:45 99 24 93/49 95 08/28/18 17:30 101 H 18 100/50 95 08/28/18 17:15 102 H 24 95/52 95 08/28/18 17:00 104 H 34 H 105/52 95 08/28/18 16:45 105 H 25 H 109/56 95 08/28/18 16:30 104 H 25 H 110/56 95 08/28/18 16:15 103 H 28 H 105/53 95 08/28/18 16:00 100.3 F H 102 H 23 108/56 94 L 08/28/18 15:45 102 H 33 H 104/59 95 08/28/18 15:30 99 18 106/53 94 L 08/28/18 15:15 98 23 107/53 94 L 08/28/18 15:00 96 22 105/57 94 L 08/28/18 14:45 96 18 97/52 94 L 08/28/18 14:30 94 21 91/49 94 L 08/28/18 14:15 94 20 92/48 94 L 08/28/18 14:00 93 29 H 89/48 93 L 08/28/18 13:45 96 18 116/75 89 L 08/28/18 13:30 90 22 92/52 91 L 12/12/18 13:15 87 19 91/47 96 08/28/18 13:00 90 19 90/50 97 18 12:48 90 19 97 18 12:30 89 26 H 94/50 95 18 12:15 89 21 98/49 96 08/28/18 12:00 100.0 F H 87 18 95/48 95 08/28/18 11:45 87 18 98/52 95 08/28/18 11:30 82 19 92/50 94 L 08/28/18 11:15 85 18 92/53 95 08/28/18 11:00 85 18 96/52 95 08/28/18 10:45 87 18 95/54 94 L 08/28/18 10:30 93 22 102/57 92 L 08/28/18 10:15 92 18 103/58 93 L 08/28/18 10:00 85 18 90/51 96 08/28/18 09:45 86 18 88/51 96 08/28/18 09:30 87 18 90/50 99 08/28/18 09:15 85 17 87/46 99 08/28/18 09:00 85 18 87/48 100 08/28/18 08:45 98.3 F 90 19 84/53 99 08/28/18 08:30 87 18 85/47 99 08/28/18 08:15 88 19 85/46 99 08/28/18 08:00 66 19 67/36 96 08/28/18 07:45 53 L 18 65/32 99 08/28/18 07:39 98.0 F 45 L 18 65/32 08/28/18 07:30 46 L 22 84/63 97 08/28/18 07:15 50 L 17 51/34 95 08/28/18 07:00 60 57 H 129/91 92 L 18 06:45 48 H 135/40 95 18 06:39 97.6 F 60 18 135/40 18 06:30 0 L 92 L 08/28/18 06:15 70 47 H 102/64 100 08/28/18 06:00 48 L 22 67/36 96 18 05:45 52 L 21 76/34 96 18 05:39 52 L 18 120/52 08/28/18 05:30 51 L 21 120/91 93 L 08/28/18 05:15 61 21 84/60 92 L 08/28/18 05:09 76 18 84/60 08/28/18 05:00 62 22 123/105 92 L 08/28/18 04:55 62 22 92 L 08/28/18 04:20 18 08/28/18 04:15 97.5 F L 78 18 120/76 08/28/18 04:09 132/80 08/28/18 04:00 96.6 F L 65 18 130/90 08/28/18 03:54 96.3 F L 76 22 140/90 08/28/18 02:45 80 19 78/66 100 08/28/18 02:42 96 18 113/46 100 08/28/18 02:30 71 20 108/63 99 08/28/18 02:15 90 19 97/62 08/28/18 02:00 92 18 73/36 89 L 08/28/18 01:45 86 18 69/56 97 08/28/18 01:30 113 H 23 108/56 97 08/28/18 01:16 113 H 16 171/81 97 08/28/18 01:15 115 H 22 109/71 94 L 08/28/18 01:09 106 H 16 146/88 95 08/28/18 01:05 0 L 0 L 0 L Intake and Output 08/28/18 08/28/18 08/29/18 14:59 22:59 06:59 Intake Total 2582.162 1377.368 347.059 Output Total 235 475 110 Balance 2347.162 902.368 237.059 Intake: IV 2370 812.8 75 Clindamycin 600 mg In 50 50 Dextrose 5% in Water 50 ml @ 50 mls/hr IVPB Q8H [facility] Rx#:[id number] DOPamine DRIP 800 mg In 37.8 Dextrose/Water 1 500ml. bag @ 2.5 MCG/KG/MIN 9.35 mls/hr IV .Q24H [facility] Rx#: [id number] Sodium Chloride 0.9% 1, 700 25 000 ml @ 100 mls/hr IV . Q10H [facility] Rx#:[id number] Sodium Chloride 0.9% 1, 550 75 000 ml @ 75 mls/hr IV . [id number] [facility] Rx#:[id number] Sodium Chloride 0.9% 1, 1000 000 ml @ 999 mls/hr IV . Q1H1M STA Rx#:[id number] Vancomycin 1,750 mg In 500 Sodium Chloride 0.9% 500 ml 500 ml @ 167 mls/hr IVPB Q24HR@0600 [facility] Rx#: [id number] Water flushes 270 Intake, IV Titration 212.162 564.568 272.059 Amount DOPamine DRIP 800 mg In 82.778 168.39 Dextrose/Water 1 500ml. bag @ 2.5 MCG/KG/MIN 9.35 mls/hr IV .Q24H [facility] Rx#: [id number] Heparin Sod,Pork in 0.45% 154.755 91.604 NaCl 25,000 unit In 0.45 % NaCl 1 250ml.bag @ 18 UNITS/KG/HR 17.96 mls/hr IV .[id number] REPLACED BY [facility] Rx#: [id number] Norepinephrine 16 mg In 78.511 149.702 86.235 Sodium Chloride 0.9% 250 ml @ Titrate IV .Q0M REPLACED BY [facility] Rx#:[id number] Propofol 1,000 mg In 50.873 91.721 94.220 Empty Bag 1 bag @ Titrate IV .Q0M REPLACED BY [facility] Rx#: [id number] Output: Urine 235 475 110 Other: Voiding Method Indwelling Catheter Indwelling Catheter Weight 99.79 kg - Constitutional General appearance: disheveled, mild distress, morbidly obese - EENT Eyes: abnormal pupil, normal appearance Ears: bilateral: normal - Neck Carotids: bilateral: upstroke normal, bruit absent - Respiratory Respiratory: bilateral: diminished (At the bases), rales (At the bases) - Cardiovascular Rhythm: regular Heart sounds: normal: S1, S2 Patient is nonverbal and noncommunicative sedated with propofol drip and full ventilator support Results - Laboratory Findings CBC and BMP: 08/28/18 06:45 08/28/18 22:08 ABG ABG pH 7.19 (7.35-7.45) L* 08/28/18 06:12 ABG pCO2 48 mmHg (35-45) H 08/28/18 06:12 ABG pO2 149 mmHg (83-108) H 08/28/18 06:12 ABG O2 Saturation 99.8 % (94-97) H 08/28/18 06:12 PT/INR, D-dimer PT 11.9 sec (9.0-12.0) 08/28/18 01:24 INR 1.1 (<1.2) 08/28/18 01:24 D-Dimer 29.47 mg/L FEU (<0.60) H 08/28/18 06:45 Abnormal lab findings: Abnormal Labs 08/28/18 08/28/18 08/28/18 01:19 01:24 01:24 WBC 16.5 H MCHC 29.6 L Neutrophils # (Manual) Lymphocytes # (Manual) 7.92 H Monocytes # (Manual) Metamyelocytes # (Man) 0.66 H Myelocytes # (Manual) 0.50 H APTT D-Dimer ABG pH <7.00 L* ABG pCO2 83 H* ABG pO2 133 H ABG HCO3 18 L ABG O2 Saturation Potassium Carbon Dioxide Creatinine Glucose POC Glucose (mg/dL) Hemoglobin A1c Plasma Lactic Acid Micha Calcium Phosphorus Magnesium AST CK-MB (CK-2) 4.8 H Troponin I 0.202 H* Ur Specific [place] Urine Protein Urine Blood Ur Leukocyte Esterase Urine RBC Urine WBC Urine Bacteria Urine Mucus 08/28/18 08/28/18 08/28/18 01:24 01:24 01:24 WBC MCHC Neutrophils # (Manual) Lymphocytes # (Manual) Monocytes # (Manual) Metamyelocytes # (Man) Myelocytes # (Manual) APTT 32.6 H D-Dimer 30.86 H ABG pH ABG pCO2 ABG pO2 ABG HCO3 ABG O2 Saturation Potassium Carbon Dioxide 19 L Creatinine 1.47 H Glucose 365 H POC Glucose (mg/dL) Hemoglobin A1c Plasma Lactic Acid Micha Calcium 8.3 L Phosphorus Magnesium 2.7 H AST 66 H CK-MB (CK-2) Troponin I Ur Specific [place] Urine Protein Urine Blood Ur Leukocyte Esterase Urine RBC Urine WBC Urine Bacteria Urine Mucus 08/28/18 08/28/18 08/28/18 04:21 06:12 06:45 WBC 19.2 H MCHC 30.3 L Neutrophils # (Manual) 16.50 H Lymphocytes # (Manual) Monocytes # (Manual) 1.15 H Metamyelocytes # (Man) 0.19 H Myelocytes # (Manual) 0.19 H APTT D-Dimer ABG pH 7.19 L* ABG pCO2 48 H ABG pO2 149 H ABG HCO3 18 L ABG O2 Saturation 99.8 H Potassium Carbon Dioxide Creatinine Glucose POC Glucose (mg/dL) 258 H Hemoglobin A1c Plasma Lactic Acid Micha Calcium Phosphorus Magnesium AST CK-MB (CK-2) Troponin I Ur Specific [place] Urine Protein Urine Blood Ur Leukocyte Esterase Urine RBC Urine WBC Urine Bacteria Urine Mucus 08/28/18 08/28/18 08/28/18 06:45 06:45 06:45 WBC MCHC Neutrophils # (Manual) Lymphocytes # (Manual) Monocytes # (Manual) Metamyelocytes # (Man) Myelocytes # (Manual) APTT D-Dimer 29.47 H ABG pH ABG pCO2 ABG pO2 ABG HCO3 ABG O2 Saturation Potassium 7.0 H* Carbon Dioxide Creatinine 1.93 H Glucose 208 H POC Glucose (mg/dL) Hemoglobin A1c 6.3 H Plasma Lactic Acid Micha Calcium 7.3 L Phosphorus 7.9 H Magnesium AST CK-MB (CK-2) Troponin I Ur Specific [place] Urine Protein Urine Blood Ur Leukocyte Esterase Urine RBC Urine WBC Urine Bacteria Urine Mucus 08/28/18 08/28/18 08/28/18 11:40 13:09 13:15 WBC MCHC Neutrophils # (Manual) Lymphocytes # (Manual) Monocytes # (Manual) Metamyelocytes # (Man) Myelocytes # (Manual) APTT D-Dimer ABG pH ABG pCO2 ABG pO2 ABG HCO3 ABG O2 Saturation Potassium Carbon Dioxide Creatinine Glucose POC Glucose (mg/dL) 138 H Hemoglobin A1c Plasma Lactic Acid Micha 2.7 H* Calcium Phosphorus Magnesium AST CK-MB (CK-2) Troponin I Ur Specific [place] 1.043 H Urine Protein 2+ H Urine Blood Large H Ur Leukocyte Esterase Small H Urine RBC 58 H Urine WBC 29 H Urine Bacteria Rare H Urine Mucus Rare H 08/28/18 08/28/18 08/28/18 15:50 15:50 16:48 WBC MCHC Neutrophils # (Manual) Lymphocytes # (Manual) Monocytes # (Manual) Metamyelocytes # (Man) Myelocytes # (Manual) APTT 82.9 H D-Dimer ABG pH ABG pCO2 ABG pO2 ABG HCO3 ABG O2 Saturation Potassium 6.1 H* Carbon Dioxide Creatinine Glucose POC Glucose (mg/dL) Hemoglobin A1c Plasma Lactic Acid [place] 2.1 H* Calcium Phosphorus Magnesium AST CK-MB (CK-2) Troponin I Ur Specific [place] Urine Protein Urine Blood Ur Leukocyte Esterase Urine RBC Urine WBC Urine Bacteria Urine Mucus 08/28/18 08/28/18 08/28/18 21:21 22:08 22:08 WBC MCHC Neutrophils # (Manual) Lymphocytes # (Manual) Monocytes # (Manual) Metamyelocytes # (Man) Myelocytes # (Manual) APTT 91.3 H D-Dimer ABG pH ABG pCO2 ABG pO2 ABG HCO3 ABG O2 Saturation Potassium Carbon Dioxide Creatinine Glucose POC Glucose (mg/dL) 160 H Hemoglobin A1c Plasma Lactic Acid [place] 2.7 H* Calcium Phosphorus Magnesium AST CK-MB (CK-2) Troponin I Ur Specific [place] Urine Protein Urine Blood Ur Leukocyte Esterase Urine RBC Urine WBC Urine Bacteria Urine Mucus 08/28/18 08/28/18 22:08 23:32 WBC MCHC Neutrophils # (Manual) Lymphocytes # (Manual) Monocytes # (Manual) Metamyelocytes # (Man) Myelocytes # (Manual) APTT D-Dimer ABG pH ABG pCO2 ABG pO2 ABG HCO3 ABG O2 Saturation Potassium 6.1 H* Carbon Dioxide Creatinine Glucose POC Glucose (mg/dL) 147 H Hemoglobin A1c Plasma Lactic Acid [place] Calcium Phosphorus Magnesium AST CK-MB (CK-2) Troponin I Ur Specific [place] Urine Protein Urine Blood Ur Leukocyte Esterase Urine RBC Urine WBC Urine Bacteria Urine Mucus - Diagnostic Findings Chest x-ray: report reviewed, image reviewed CT scan - chest: report reviewed, image reviewed (Some interstitial edema and right lower lobe infiltrate noted at admit chest x-ray, KUB suggestive of early ileus-like appearence, computed tomography scan of the head is unremarkable, follow-up chest x-ray earlier this morning at 6 revealed interstitial edema and pulmonary edema slightly more pronounced the ET tube remains stable, computed tomography scan of the chest revealed bilateral pleural effusion and patchy prominent interstitium likely related to heart failure, early developing pneumonia at the bases cannot be excluded, cardiac cath and angiogram is negative for significant coronary artery disease, left ventricular end- diastolic pressure elevated, see echocardiogram report, echocardiogram performed earlier this morning revealed ejection fraction of 55-60% along with LVH, pedunculated mobile vegetation was seen with mild regurgitation and moderate stenosis off note that this was not reported on previous echocardiogram performed a month ago) Assessment and Plan Assessment: Status post cardiopulmonary arrest likely cardiac arrest 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
[2018-08-29] MEDS ORDERED: LEVOFLOXACIN 500MG-D5W PMX 500 MG in DEXTROSE/WATER 1 100ML.BAG IVPB SCH (01:00)
[2018-08-29] MEDS ORDERED: DEXTROSE 5% IN WATER 1,000 ML with SODIUM BICARB (1 MEQ/ML) 150 ML IV SCH ×2 (01:30→11:00)
[2018-08-29] MEDS ORDERED: SODIUM CHLORIDE 0.9% 1,000 ML IV SCH (04:00)
[2018-08-29] MEDS: NOREPINEPHRINE 16 MG in SODIUM CHLORIDE 0.9% 250 ML IV SCH ×2 (04:55→12:04)
[2018-08-29 04:58] LABS: ABG Base Excess -6.1 mmol/L; ABG HCO3 21 mmol/L (21-25); ABG Oxygen Saturation 97.7 % (94-97); ABG PCO2 50 mmHg (35-45); ABG PH 7.24 (7.35-7.45); ABG PO2 92 mmHg (83-108); ABG TCO2 23 mmol/L (19-24)
[2018-08-29] MEDS: CLINDAMYCIN 600 MG in DEXTROSE 5% IN WATER 50 ML IVPB SCH ×4 (05:20→13:30)
[2018-08-29 05:31] LABS: Basophils # (A) 0.1 k/uL (0-0.2); Basophils % (A) 0 %; Eosinophils # (A) 0.1 k/uL (0-0.7); Eosinophils % (A) 0 %; HCT 45.9 % (39.0-53.0); HGB 14.1 gm/dL (13.0-17.5); Hypochromasia Slight; Lymphocytes # (A) 2.8 k/uL (1.0-4.8); Lymphocytes % (A) 17 %; MCH 29.4 pg (25.0-35.0); MCHC 30.8 g/dL (31.0-37.0); MCV 95.7 fL (80.0-100.0); Mean Platelet Volume 7.5; Monocytes # (A) 0.9 k/uL (0-1.0); Monocytes % (A) 5 %; Neutrophils # (A) 12.7 k/uL (1.3-7.7); Neutrophils % (A) 76 %; Platelet Count 192 k/uL (150-450); RBC 4.79 m/uL (4.30-5.90); RDW 14.5 % (11.5-15.5); WBC 16.8 k/uL (3.8-10.6)
[2018-08-29 05:59] LABS: Potassium 5.4 mmol/L (3.5-5.1)
[2018-08-29 06:00] LABS: Calcium 6.6 mg/dL (8.4-10.2); Magnesium 1.6 mg/dL (1.6-2.3); Phosphorus 5.1 mg/dL (2.5-4.5)
[2018-08-29] MEDS: VANCOMYCIN 1,750 MG in SODIUM CHLORIDE 0.9% 500 ML 500 ML IVPB SCH (06:49)
[2018-08-29 06:52] LABS: Glucose,Whole Blood 173 mg/dL (75-99)
--- NOTE | 2018-08-29 07:36 | XR ---
EXAMINATION TYPE: XR chest 1V DATE OF EXAM: 08/29/2018 CLINICAL HISTORY: Difficulty breathing progress study. TECHNIQUE: Single AP portable semi-upright view of the chest is obtained. COMPARISON: Chest x-ray and CTA chest from one day earlier FINDINGS: And endotracheal tube and orogastric tube are stable in appearance. There is increasing bi lateral opacities now fairly confluent involving upper and lower lungs. No pneumothorax is seen bilat erally. Osseous structures are intact. Cardiac silhouette size is stable and upper limits of normal. IMPRESSION: Worsening bilateral diffuse edema and/or infiltrates, correlate for developing ARDS.
[2018-08-29] MEDS: HEPARIN SODIUM,PORCINE 5,000 UNIT/ML 1 ML VIAL SQ SCH ×2 (08:26→19:10)
[2018-08-29] MEDS: CHLORHEXIDINE GLUCONATE 15 ML CUP MUCOUS MEM SCH (08:26)
[2018-08-29] MEDS: PANTOPRAZOLE 40 MG/10 ML VIAL IV SCH (08:27)
[2018-08-29] MEDS: FUROSEMIDE 10 MG/ML 4 ML VIAL IV SCH (08:27)
[2018-08-29] MEDS ORDERED: Magnesium Replacement Protocol 1 EACH MISC MISCELLANE PRN (08:42)
--- NOTE | 2018-08-29 08:57 | PN ---
PROGRESS NOTE Mr. Mayer remains unresponsive. He is on a high dose of Levophed. He has a fairly decent urine output. He is also having a dark discharge from his NG tube. I am recommending that we discontinue IV heparin and place him on subcu heparin. I will decrease his dopamine to 2.5 mcg. He is also on Levophed. Prognosis appears to be quite poor. I will repeat a troponin level. It appears that the patient had a respiratory arrest. The exact precipitating cause is unclear. Following this, he has had some anoxic brain damage as well is what I suspect given the prolonged down time the patient had. However, his coronaries did not reveal obstructive disease. There is evidence of a _pedunculated vegetation on his bioprosthetic aortic valve and I am not sure how much this contributed to this acute episode. This may be an incidental observation. His blood cultures are pending at this time yet with no growth. His CT scan of the brain did not reveal any significant abnormalities. His CT angiography was negative for pulmonary embolism. Overall prognosis remains poor. Physical exam revealed S1, S2 heard without significant murmurs. Lungs reveal bilateral air entry assisted by the ventilator. Abdomen is distended. Central nervous system assessment was not possible. Prognosis is poor. I did speak to Dr. Romeo Street his primary care physician and I do not have any specific suggestions. Prognosis is poor. The exact precipitating cause for his sudden deterioration with difficulty breathing is unclear to me. I will seek input from Neurology to see how his how his neurological status is. Will speak to family later on today and I am awaiting input and further advice from [facility], Dr. Zavala. KANG / VIDHI: [id number] / [facility]: [place] CAMPUST[place]
[2018-08-29] MEDS: MAGNESIUM SULFATE-D5W PMX 1 GM in DEXTROSE/WATER 1 100ML.BAG IVPB SCH ×2 (09:32→11:14)
[2018-08-29 09:59] VITALS: BMI 41.3
[2018-08-29] MEDS: IPRATROPIUM-ALBUTEROL 3 ML NEB INHALATION SCH ×3 (11:13→20:25)
[2018-08-29] MEDS: methylPREDNISolone SOD SUCCI 40 MG/ML 1 ML VIAL IV SCH ×2 (11:15→19:10)
[2018-08-29] MEDS ORDERED: ATROPINE SULFATE 0.1 MG/ML 10ML SYRINGE ONE (11:36)
[2018-08-29] MEDS ORDERED: ATROPINE SULFATE 0.1 MG/ML 10ML SYRINGE IV STA (11:37)
[2018-08-29 12:02] VITALS: TEMP 100.1
[2018-08-29] MEDS: DOPamine DRIP 800 MG in DEXTROSE/WATER 1 500ML.BAG IV SCH (12:02)
[2018-08-29 12:19] LABS: Glucose,Whole Blood 212 mg/dL (75-99)
[2018-08-29] MEDS ORDERED: CISATRACURIUM 2 MG/ML 5 ML VIAL IV ONE (13:27)
[2018-08-29] MEDS ORDERED: SODIUM CHLORIDE 0.9% 99 ML with VASOPRESSIN 20 UNIT IV SCH ×2 (13:45)
[2018-08-29] MEDS ORDERED: ARTIFICIAL TEARS OINTMENT 3.5 GM TUBE BOTH EYES PRN (14:26)
[2018-08-29 14:28] LABS: ABG Base Excess -12.1 mmol/L; ABG HCO3 21 mmol/L (21-25); ABG Oxygen Saturation 81.8 % (94-97); ABG PO2 67 mmHg (83-108); ABG TCO2 24 mmol/L (19-24)
[2018-08-29] MEDS: SODIUM BICARB 8.4% 50 ML SYR (1 MEQ/ML) ONE ×4 (14:30→14:47)
[2018-08-29] MEDS ORDERED: CISATRACURIUM 200 MG in SODIUM CHLORIDE 0.9% 180 ML IV SCH (14:30)
[2018-08-29] MEDS: SODIUM BICARB 8.4% 50 ML SYR (1 MEQ/ML) IV ONE ×4 (14:30→14:39)
[2018-08-29] MEDS ORDERED: SODIUM CHLORIDE 0.9% 1,000 ML IV ONE (14:30)
[2018-08-29] MEDS ORDERED: cefTRIAXone 2,000 MG in SODIUM CHLORIDE 0.9% 100 ML IVPB SCH (16:00)
[2018-08-29] MEDS ORDERED: ATROPINE OPHTH SOLN 1% 5ML BTL SUBLINGUAL PRN (16:38)
[2018-08-29] MEDS ORDERED: MORPHINE SULFATE 2 MG/ML SYRINGE IV PRN (16:38)
[2018-08-29 17:54] VITALS: BP 87/44; PULSE 0; RESP 0
--- NOTE | 2018-08-29 19:27 | CONS ---
CONSULTATION DATE OF SERVICE: 08/29/2018. REASON FOR CONSULTATION: Sepsis. HISTORY OF PRESENT ILLNESS: The patient is a 63-year-old male who was brought into the ER by EMS on 08/28/2018 with initial cause to the EMS was chest pain. Apparently the patient on arrival of the EMS was found to be unresponsive, bradycardic and hypotensive and become pulseless. The patient did have a CPR started in the field and he was intubated by the EMS. Subsequently was brought into the ER. On the way to the ER, the patient did receive 4 doses of epinephrine while en route as he was never in a shockable rhythm. The patient on arrival to the ER did have a chest x-ray that shows pulmonary edema compared to last exam, congestive heart failure, ARDS. Endotracheal tube was in good position. The patient who was afebrile on admission subsequently started having a fever. Initial fever was 100.3. Subsequent did have a fever of 101.2 early this morning. The patient did have elevated white count of 16.4 on admission was up to 19.5 followed by 16.8 today. The patient did have elevated creatinine that has gotten worse since admission to the hospital. His urine was mildly positive. The patient was treated with Levaquin and clindamycin. I was asked to see the patient for further recommendation regarding antibiotic therapy. Patient currently is requiring pressor support in the form of Levophed and is off the dopamine. He is intubated on the vent and unable to provide any history. No family member was available at the bedside. Most of the information has been obtained from thorough review of the chart. REVIEW OF THE SYSTEMS: Could not be reliably obtained. The positive points have been mentioned in the HPI. PAST MEDICAL HISTORY: Coronary artery disease, possible aortic valve placement in 2007. SOCIAL HISTORY: Remote history of smoking. No drinking or drug use. FAMILY HISTORY: Father history of [place]. Mother history of PE. ALLERGIES: ALLERGIES TO PENICILLIN, REACTION UNKNOWN. MEDICATIONS: Medications include the patient is currently on: Norepinephrine, Protonix, Propofol, Levaquin, Lasix, clindamycin 600 q.8h, DuoNeb and Tylenol. EXAMINATION: Blood pressure 97/44, pulse of 52, temperature is 100.1, T-max 101.2. He is 90 % on 100% FiO2. General description is a middle-aged male lying in bed in no distress. HEENT: Shows no pallor or scleral icterus. The patient is orally intubated limiting examination of the oral cavity. Neck: Trachea midline. No thyromegaly. Lungs unlabored breathing with decreased breath sounds at the bases. No wheeze or crackles. Heart S1, S2. Regular rate and rhythm. Abdomen soft. No tenderness. No guarding or rigidity. EXTREMITIES: No edema of the feet. Skin examination: No rash or mass palpable. Neurologic: The patient is currently sedated on the vent. LABS: Hemoglobin is 14.1, white count 16.8. BUN of 25, creatinine 2.57. Troponins were elevated. Lactic acid 3.7. Potassium 5.4. UA not significantly positive. Chest x-ray report mentioned above. DIAGNOSTIC IMPRESSION AND PLAN: 1. Patient with sepsis in this patient who did have a fever 101 degrees Fahrenheit. The patient did have elevated white count tachycardia meeting criteria for systemic inflammatory response syndrome, source likely an aspiration pneumonitis. The patient currently has no clinical focus of infection. Abdomen was soft on clinical examination. Urine is not significantly positive. No evidence of any cellulitis or joint swelling. 2. The patient who does have a PENICILLIN ALLERGY that will limit the number of antibiotics that could be safely used. PLAN: 1. We will discontinue Levaquin. 2. Start the patient on Rocephin 2 g daily. Continue clindamycin 600 q8h. 3. We will follow up on his clinical condition as well as cultures to further adjust medication if needed. 4. Overall prognosis remains to be guarded. Continue supportive care. MMODL / IJN: [id number] / KRISTEN
[2018-08-29] MEDS ORDERED: BUDESONIDE 1 MG/2 ML NEBU INHALATION SCH (20:00)
[2018-08-30] MEDS ORDERED: FUROSEMIDE 10 MG/ML 4 ML VIAL IV SCH (09:00)
[2018-09-02 10:57] LABS: ABG PCO2 111 mmHg (35-45); ABG PH <7.00 (7.35-7.45)
--- NOTE | 2018-09-11 22:49 | DS ---
DISCHARGE SUMMARY ADMISSION DATE: 08/28/2018. DISCHARGE DATE: 08/29/2018. MEDICATIONS: 1. Lopressor 25 b.i.d. 2. Provigil 200 mg daily. 3. Zyrtec 10 mg daily. 4. Zestril 10 mg daily. 5. [place] 10/325 t.i.d. 6. Gabapentin 600 t.i.d. 7. Lipitor 40 daily. 8. Ventolin nebulizer inhalation every 6 hours p.r.n. HOSPITAL COURSE OF EVENTS: The patient was admitted to the hospital with chest pain and shortness of breath. He had a cardiac catheterization because he had a history of aortic valve disease status post aortic valve replacement using bioprosthetic valve and chest discomfort. Heart catheterization was done, which did not show any significant coronary blockage, but he had severe elevated left ventricular end-diastolic pressure. CT of the chest was done which showed moderate bilateral pleural effusions, multifocal air space disease for pneumonia, and ground glass appearance to the lungs. Negative for pulmonary embolism, as mentioned bilateral pleural effusions, possible pneumonia, versus decompensated congestive heart failure and increased pulmonary pressures secondary to thoracic aortic aneurysm 4.7. Dr. 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 He was sitting down, watching TV when he chest discomfort. He came into the hospital. The patient was unresponsive, intubated, sent to the ICU. Pulmonary and cardiology both saw the patient and attempted to save the patient. Pulmonary diagnosis with status post cardiopulmonary arrest, vegetation, endocarditis of the aortic bioprosthetic valve, cardiogenic shock, developing early sepsis, septic shock, hyperkalemia, metabolic acidosis, acute renal failure, possible aspiration pneumonia which occurred at home, metabolic acidosis, acute renal failure, uncontrolled diabetes mellitus. The patient was not improved. Infectious Disease saw the patient which showed severe sepsis for systemic inflammatory response syndrome, likely aspiration pneumonitis. The patient was treated. The patient apparently did not improve. Comfort care measures per family. MMODL / IJN: [id number] /
--- NOTE | 2018-09-13 15:54 | CDI ---
Documentation Clarification Form Date: 09/13/18 From: Kimberlee Young Phone: If you have question, contact Paty Mejia at [phone] M-F 8:30 am to 6pm Admit Date: 08/28/2018 2:35:00 AM Patient Name: Rajan Mayer Visit Number: [id number] Discharge Date: 08/29/2018 10:56:00 PM ATTENTION: The Clinical Documentation Specialists (CDI) and [facility] Coding Staff appreciate your assistance in clarifying documentation. Please respond to the clarification below the line at the bottom and electronically sign. The CDI & [facility] Coding staff will review the response and follow-up if needed. Please note: Queries are made part of the Legal Health Record. If you have any questions, please contact the author of this message via ITS. Dr. Romeo Street The patient presented after a cardiopulmonary arrest at home. A cardiac catheterization was done on the day of admission with the results being mild nonobstructive coronary artery disease and severly elevated left ventricular end-diastolic pressure. A FELI is performed and vegetation is found on the prosthetic aortic valve. The patient did not recover and eventually . Diagnosis on the discharge summary are as follows: Vegetation endocarditis, cardiogenic shock, septic shock, metabolic acidosis, acute renal failure, and possible aspiration pneumonia which occurred at home. In your professional opinion, can you please clarify the etiology of the cardiopulmonary arrest, if known? MTDD
--- NOTE | 2018-09-24 12:09 | CDI ---
Documentation Clarification Form Date: 09/13/18 From: Kimberlee Young Phone: If you have question, contact Paty Mejia at [phone] M-F 8:30 am to 6pm Admit Date: 08/28/2018 2:35:00 AM Patient Name: Rajan Mayer Visit Number: [id number] Discharge Date: 08/29/2018 10:56:00 PM ATTENTION: The Clinical Documentation Specialists (CDI) and [facility] Coding Staff appreciate your assistance in clarifying documentation. Please respond to the clarification below the line at the bottom and electronically sign. The CDI & [facility] Coding staff will review the response and follow-up if needed. Please note: Queries are made part of the Legal Health Record. If you have any questions, please contact the author of this message via ITS. Dr. Romeo Street The patient presented after a cardiopulmonary arrest at home. A cardiac catheterization was done on the day of admission with the results being mild nonobstructive coronary artery disease and severly elevated left ventricular end-diastolic pressure. A FELI is performed and vegetation is found on the prosthetic aortic valve. The patient did not recover and eventually . Diagnosis on the discharge summary are as follows: Vegetation endocarditis, cardiogenic shock, septic shock, metabolic acidosis, acute renal failure, and possible aspiration pneumonia which occurred at home. In your professional opinion, can you please clarify the etiology of the cardiopulmonary arrest, if known? MTDD
--- NOTE | 2018-10-13 18:04 | DS ---
DISCHARGE SUMMARY DISCHARGE DIAGNOSES: Include vegetation endocarditis, cardiogenic shock, septic shock, metabolic acidosis, acute renal failure, possible aspiration pneumonia. The etiology of the cardiopulmonary arrest is unknown at this time. Please refer to media relations manager caring for the patient. MMODL / IJN: [id number] /
== END 2018-08-29 22:56 | disposition expired | DRG 286 ==
LOC: EC 01:03 → 2SICU 02:35
PROVIDERS: ADMIT Family Medicine; ATTEND Family Medicine
PROC: B2111ZZ Fluoroscopy of Multiple Coronary Arteries using Low Osmolar Contrast (ICD-10-PCS; 2018-08-28)
PROC: B2151ZZ Fluoroscopy of Left Heart using Low Osmolar Contrast (ICD-10-PCS; 2018-08-28)
PROC: 5A1945Z Respiratory Ventilation, 24-96 Consecutive Hours (ICD-10-PCS; 2018-08-28)
PROC: 4A023N7 Measurement of Cardiac Sampling and Pressure, Left Heart, Percutaneous Approach (ICD-10-PCS; principal; 2018-08-28 02:15)
DX: I46.9 Cardiac arrest, cause unspecified (principal); R65.21 Severe sepsis with septic shock; J69.0 Pneumonitis due to inhalation of food and vomit; I33.9 Acute and subacute endocarditis, unspecified; E87.2 Acidosis; N17.9 Acute kidney failure, unspecified; G93.1 Anoxic brain damage, not elsewhere classified; Z68.41 Body mass index [BMI] 40.0-44.9, adult; E87.5 Hyperkalemia; E11.65 Type 2 diabetes mellitus with hyperglycemia; I71.2 Thoracic aortic aneurysm, without rupture; E78.5 Hyperlipidemia, unspecified; E66.01 Morbid (severe) obesity due to excess calories; N18.3 Chronic kidney disease, stage 3 (moderate); I12.9 Hypertensive chronic kidney disease with stage 1 through stage 4 chronic kidney disease, or unspecified chronic kidney disease; J43.9 Emphysema, unspecified; I25.10 Atherosclerotic heart disease of native coronary artery without angina pectoris; E11.22 Type 2 diabetes mellitus with diabetic chronic kidney disease; R40.2431 Glasgow coma scale score 3-8, in the field [EMT or ambulance]; Z51.5 Encounter for palliative care; Z95.3 Presence of xenogenic heart valve; Z88.0 Allergy status to penicillin; Z87.891 Personal history of nicotine dependence; Z86.711 Personal history of pulmonary embolism; Z82.49 Family history of ischemic heart disease and other diseases of the circulatory system; Z79.899 Other long term (current) drug therapy
CPT/HCPCS: 36415; 36556; 36600; 51702; 70450; 71045; 71275; 74018; 80048; 80053; 81001; 82271; 82550; 82553; 82805; 83036; 83605; 83735; 83880; 84100; 84132; 84484; 85025; 85379; 85610; 85730; 87040; 87070; 87077; 87086; 87186; 87205; 92950; 93306; 93458; 94002; 94003; 94640; 96365; 96375; 99291